=== PATIENT | male | born 1950 | race Caucasian/White ===

== ENCOUNTER 2022-11-12 07:01 | Outpatient (CLI) | payer MEDICARE, OTHER, SELFPAY ==
--- NOTE | 2022-11-12 07:15 | CRLHL7_ITS ---
For Patients: As a result of the Century Cures Act, medical imaging exams and procedure reports are released immediately into your electronic medical record. You may view this report before your referring provider. If you have questions, please contact your health care provider. Indication: LOW BACK PAIN, RT HIP PAIN Technique: Noncontrast sagittal and axial T1, T2, and sagittal STIR sequences are provided. Comparison: Lumbar radiographs 11/03/2022 Findings: Normal lumbar spine alignment. Vertebral body heights are maintained. No fractures. No prevertebral or paraspinal edema. No aggressive osseous lesions. Chronic Schmorl`s nodes at the L3 and L4 superior and inferior endplates. The conus medullaris is normal in signal and location. T12-L1: No significant spinal canal stenosis or neural foramen narrowing. L1-2: No significant spinal canal stenosis or neural foramen narrowing. L2-3: Mild disc bulge. Micro normal L3-4: Diffuse disc bulge involving both neural foramen. Mild narrowing of the neural foramina inferior recesses. Mild bilateral subarticular recess stenosis. L4-5: Circumferential disc bulge. Bilateral facet arthrosis. No significant spinal canal stenosis or neural foramen narrowing. L5-S1: Disc desiccation. Mild disc bulge. Small right intraforaminal disc protrusion contributes to moderate right neural foramen narrowing. No left neural foramina narrowing. Impression: 1. Normal alignment. No acute osseous abnormality. Small chronic Schmorl`s nodes in the L3 and L4 vertebra. 2. At L3-4, mild subarticular recess and neural foramen narrowing at L3-4 bilaterally. 3. At L5-S1, small right intraforaminal disc protrusion contributes to moderate right neural foramen narrowing. 4. Milder degenerative changes at remaining levels. Dictated by Chito Elliott MD @ 11/12/2022 4:45:42 PM (Electronically Signed)
--- NOTE | 2022-11-12 08:15 | CRLHL7_ITS ---
For Patients: As a result of the Century Cures Act, medical imaging exams and procedure reports are released immediately into your electronic medical record. You may view this report before your referring provider. If you have questions, please contact your health care provider. HISTORY: The sacrococcygeal region pain. TECHNIQUE: Routine sacroiliac joint protocol. FINDINGS: Lumbar spine findings will be reported separately. No abnormality of bone marrow signal intensity is seen throughout the sacrococcygeal region or posterior pelvic bones to suggest stress reaction, fracture or tumor. Overall the sacroiliac joints appear symmetrically widened. This is also seen on the plain film study of 09/15/2022. No joint effusion or periarticular bone marrow edema is noted. No sclerotic changes are present. Small anterior osteophytes are noted. No soft tissue abnormality is appreciated. IMPRESSION: Small osteophytes the sacroiliac joints anteriorly with mild symmetric widening of both joints. No findings for effusion or periarticular bone marrow edema. Dictated by Nikhil Mathur MD @ 11/12/2022 2:01:15 PM (Electronically Signed)
== END 2022-11-12 07:02 | disposition home or self-care (01) ==
LOC: MRI 07:04
PROVIDERS: PCP Family Medicine; Visit Provider Physician Assistant
DX: M25.551 Pain in right hip (principal); M25.552 Pain in left hip; M53.3 Sacrococcygeal disorders, not elsewhere classified; M25.78 Osteophyte, vertebrae; M51.26 Other intervertebral disc displacement, lumbar region; M51.27 Other intervertebral disc displacement, lumbosacral region
CPT/HCPCS: 72148; 72195

== ENCOUNTER 2022-12-30 06:48 | Outpatient (CLI) | payer MEDICARE, OTHER, SELFPAY | END 2022-12-30 06:49 | disposition home or self-care (01) | LOC: INJ CL 06:49 | PROVIDERS: PCP Family Medicine; Visit Provider Family Medicine | DX: M54.16 Radiculopathy, lumbar region (principal); M51.36 Other intervertebral disc degeneration, lumbar region | CPT/HCPCS: 64483; J1100; Q9966 ==

== ENCOUNTER 2023-02-05 08:43 | Outpatient (CLI) | payer MEDICARE, OTHER, SELFPAY ==
--- NOTE | 2023-02-05 10:15 | CRLHL7_ITS ---
For Patients: As a result of the Century Cures Act, medical imaging exams and procedure reports are released immediately into your electronic medical record. You may view this report before your referring provider. If you have questions, please contact your health care provider. INDICATION: Low back pain. Right leg pain. COMPARISON: 11/12/2022. TECHNIQUE: Sagittal T1, T2, and STIR sequences. Axial T1 and T2 weighted sequences. FINDINGS: Normal vertebral body alignment. No fractures. No vertebral body loss of height. No spondylolisthesis. No evidence injury. No suspicious osseous lesions. Normal conus terminates at L1-2. Schmorl`s nodes at the endplates of L3 and L4. T12-L1 L1-2: No spinal canal neural foraminal narrowing. L2-3: Disc degeneration posted disc bulge. No narrowing of the spinal canal. No neural foraminal narrowing. L3-4: Disc degeneration. Posted disc bulge. Mild narrowing of the spinal canal. No neural foraminal narrowing. L4-5: Disc degeneration posted disc bulge. No narrowing of the spinal canal. No impingement of the traversing S1 nerve roots. Mild narrowing of bilateral foramina. L5-S1: Disc degeneration and posterior disc bulge. No narrowing of the spinal canal. No impingement of the traversing S1 nerve roots. Moderate to severe right and mild left neural foraminal narrowing. Mild facet arthropathy. Normal visualized SI joints. Normal paraspinal soft tissues. IMPRESSION: 1. Normal alignment. No fractures 2. Stable lumbar spondylosis. 3. At L3-4, mild narrowing of the spinal canal 4. At L4-5, mild narrowing of bilateral neural foramina 5. At L5-S1, moderate to severe narrowing of the right neuroforamen. Potential impingement of the exiting right L5 nerve root Dictated by Piotr Thompson MD @ 02/05/2023 1:51:23 PM (Electronically Signed)
--- NOTE | 2023-02-05 11:00 | CRLHL7_ITS ---
For Patients: As a result of the Cures Act, medical imaging exams and procedure reports are released immediately into your electronic medical record. You may view this report before your referring provider. If you have questions, please contact your health care provider. Indication: LOW BACK PAIN, LEG PAIN Comparison: MRI 11/12/2022 Technique: Lumbar spine 4 view, including flexion/extension IMPRESSION: No fracture. Slight degenerative retrolisthesis of L3 on L4 and L2 on L3 noted without instability with flexion or extension. Dictated by Chito Kan MD @ 02/05/2023 10:10:16 AM (Electronically Signed)
== END 2023-02-05 08:44 | disposition home or self-care (01) ==
LOC: MRI 08:43
PROVIDERS: PCP Family Medicine; Visit Provider Orthopaedic Surgery Orthopaedic Surgery of the Spine
DX: M51.16 Intervertebral disc disorders with radiculopathy, lumbar region (principal); M47.896 Other spondylosis, lumbar region; M51.26 Other intervertebral disc displacement, lumbar region; M79.604 Pain in right leg
CPT/HCPCS: 72110; 72148

== ENCOUNTER 2024-01-19 15:07 | Outpatient (CLI) | payer MEDICARE, OTHER, SELFPAY ==
--- NOTE | 2024-01-19 15:30 | MR_ITS ---
[address] [address] Phone:?[phone] Fax:?[phone] Referring Physician Information: Ryanne Holland [address] [facility] [address] Phone:?[phone] Fax:?[phone] Patient:?Jose Nation D.O.B:?1950 Sex:?Male Phone:?[phone] [facility] MRN:?[id number] Exam Date:?01/19/2024 EXAM: MRI of the LEFT HIP, without contrast CLINICAL: Male, 73 years old, with left hip pain reportedly associated with lifting injury. INDICATION: Evaluate for bursitis versus other hip internal derangement etiology. PRIOR SURGERY: None reported. PLAIN FILMS: 01/11/2024 radiographic series of the left hip. COMPARISONS: No prior MRIs available. TECHNICAL: Using a 1.5T MR scanner: 5.0 mm?coronals: PD, T2 3.0 mm?sagittals: PD, T2 3.0 mm oblique?axials: PD 3.0 mm?axials: PDFS 5.0 mm?coronals: T1, STIR of pelvis including hips SEDATION: None. CONTRAST: No intravenous contrast. IMPRESSION: 1. Degeneration and irregular tear of the anterosuperior labrum as well as expected extension of degeneration and some into the more posterior labrum. 2. No convincing left hip chondromalacia/osteoarthritis, subjacent marrow edema or pathologic joint effusion. 3. Perhaps some slight to mild tendinosis/tendinopathy of the distal left gluteus minimus tendon and insertion, but without more marked tendinopathy or defined tear. 4. No bone stress injuries. FINDINGS: Hip joint: Effusion: Physiologic. Ganglion/paralabral cyst: None. Articular cartilage: Appears uniform and intact. Loose bodies: None. Labrum: Abnormal signal alteration and indistinctness of the anterosuperior labrum in keeping with degeneration and irregular tear (oblique axial series 6, images 19- 13; sagittal series 8, images 12-16). Likely some degeneration also extending to the posterosuperior labrum. Proximal femur: No femoral occult fracture, bone stress injury, marrow edema or osteonecrosis. Based on oblique axial series 6, image 17 at approximately 9:30 o'clock anterosuperiorly, the maximum femoral alpha angle measures approximately 47?. Acetabulum: No subchondral cysts, periacetabular ossicles or marrow edema. Version: [Suspected decreased cranial acetabular version without convincing layla retroversion. Coverage:?Left lateral center edge (CE) angle measures high normal at approximately 37? (corrected for any pelvic tilt) (normal 25?-39?), midline coronal series 4, image 12. Ligamentum teres: Chronically attenuated. Pelvis osseous structures: The inferior extent of metallic artifact associated with surgery of the lumbosacral level of the lumbar spine noted. Sacrum: No stress/insufficiency fractures or marrow edema/pathology. Sacroiliac joints: No demonstrable sacroiliitis. Pubic rami: No stress/insufficiency fractures or marrow edema/pathology. Symphysis pubis: No ongoing osteitis pubis. AIIS: Superoinferior extent: At the level of the acetabular roof. Anterior extent: 12 mm anterior to the anterior mid-acetabular rim. Myotendinous structures: Gluteus abductors: Slight peritendinous edema of the distal left gluteus minimus tendon and insertion could perhaps represent slight to mild tendinosis/tendinopathy, but without convincing more marked tendinopathy or tear (axial PDFS series 7, images 14-19). Adductors: No demonstrable tendinopathy or strain/tear. Rectus abdominis: No demonstrable tear/strain. Pre-pubic aponeurotic complex: Intact, without evidence of common rectus abdominis-adductor longus aponeurosis or pubic plate lesion. Hamstrings: Intact semimembranosus, semitendinosus and biceps femoris tendons, without tendinopathy or tear. Flexors: Intact iliopsoas and rectus femoris, without strain/tear. External rotators: Intact, without demonstrable ischiofemoral impingement. Gluteal aponeurotic fascia and IT band: Unremarkable. Bursae: No demonstrable trochanteric, iliopsoas, or iliopectineal bursitis. Intrapelvic contents: Free fluid: No free fluid seen within the pelvis. Pelvic viscera: No discrete intrapelvic mass is identified. Lymph nodes: No pathologically enlarged lymphadenopathy. Neurovascular structures: No discrete cyst, mass or other compression upon the portions visualized of sciatic or femoral nerves. F Electronically signed on 01/20/2024 1:09:00 PM by Rk Nash M.D.
== END 2024-01-19 15:08 | disposition home or self-care (01) ==
LOC: MRI 15:08
PROVIDERS: PCP Family Medicine; Visit Provider Physician Assistant
DX: M25.552 Pain in left hip (principal); S73.192A Other sprain of left hip, initial encounter; M70.62 Trochanteric bursitis, left hip
CPT/HCPCS: 73721